=== PATIENT | male | born 1990 | race Caucasian/White ===

== ENCOUNTER 2016-12-22 19:43 | Emergency (ER) | payer MEDICAID | END 2016-12-23 00:10 | disposition home or self-care (01) | LOC: D.ER 19:43 | DX: S16.1XXA Strain of muscle, fascia and tendon at neck level, initial encounter (principal); V49.9XXA Car occupant (driver) (passenger) injured in unspecified traffic accident, initial encounter; Y93.89 Activity, other specified; Y92.89 Other specified places as the place of occurrence of the external cause; S29.012A Strain of muscle and tendon of back wall of thorax, initial encounter; S76.012A Strain of muscle, fascia and tendon of left hip, initial encounter; S76.011A Strain of muscle, fascia and tendon of right hip, initial encounter; M54.9 Dorsalgia, unspecified ==

== ENCOUNTER 2018-01-18 19:54 | Emergency (ER) | payer MEDICAID ==
[~2018-01-18] VITALS: Ht 185.4 cm; Wt 72.7 kg
[2018-01-18 20:08] VITALS: Ht 185.4 cm; Wt 72.7 kg
[2018-01-18] MEDS ORDERED: IBUPROFEN800 MG PO (21:01)
[2018-01-18 21:15] VITALS: BP 132/80
== END 2018-01-18 21:16 | disposition home or self-care (01) ==
LOC: D.ER 19:54
DX: S42.002A Fracture of unspecified part of left clavicle, initial encounter for closed fracture (principal); V86.56XA Driver of dirt bike or motor/cross bike injured in nontraffic accident, initial encounter; Y93.89 Activity, other specified; Y92.89 Other specified places as the place of occurrence of the external cause; F17.200 Nicotine dependence, unspecified, uncomplicated

== ENCOUNTER 2019-01-11 12:40 | Emergency (ER) | payer MEDICAID ==
[~2019-01-11] VITALS: Ht 185.4 cm; Wt 72.7 kg
[~2019-01-11 12:40] MED LIST: IBUPROFEN800 MG PO
[2019-01-11 12:43] VITALS: Ht 185.4 cm; Wt 72.7 kg
[2019-01-11] MEDS ORDERED: TORADOL10 MG PO (14:32)
[2019-01-11 14:52] VITALS: BP 164/88
== END 2019-01-11 14:55 | disposition home or self-care (01) ==
LOC: D.ER 12:40
DX: M54.5 Low back pain (principal); V86.99XA Unspecified occupant of other special all-terrain or other off-road motor vehicle injured in nontraffic accident, initial encounter; M79.671 Pain in right foot; F17.210 Nicotine dependence, cigarettes, uncomplicated

== ENCOUNTER 2019-10-09 14:18 | Emergency (ER) | payer MEDICAID ==
[~2019-10-09] VITALS: Ht 185.4 cm; Wt 72.7 kg
[~2019-10-09 14:18] MED LIST changes: +TORADOL10 MG PO
[2019-10-09 14:35] VITALS: BP 132/73; Ht 185.4 cm; Wt 72.7 kg
== END 2019-10-09 15:50 | disposition home or self-care (01) ==
LOC: D.ER 14:18
DX: S90.31XA Contusion of right foot, initial encounter (principal); W22.8XXA Striking against or struck by other objects, initial encounter

== ENCOUNTER 2020-08-03 13:30 | Emergency (ER) | payer MEDICAID ==
[~2020-08-03] VITALS: Ht 185.4 cm; Wt 70.5 kg
[~2020-08-03 13:30] MED LIST changes: +NAPROSYN500 MG PO
[2020-08-03 13:34] VITALS: BP 124/71; Ht 185.4 cm; Wt 70.5 kg
[2020-08-03] MEDS ORDERED: CYCLOBENZAPRINE10 MG PO (13:45)
[2020-08-03] MEDS ORDERED: ACETAMINOPHEN500 M1 PO (13:45)
[2020-08-03] MEDS ORDERED: IBUPROFEN800 MG PO (13:45)
== END 2020-08-03 14:48 | disposition home or self-care (01) ==
LOC: D.ER 13:30
DX: S06.0X9A Concussion with loss of consciousness of unspecified duration, initial encounter (principal); S20.229A Contusion of unspecified back wall of thorax, initial encounter; M79.10 Myalgia, unspecified site; S00.03XA Contusion of scalp, initial encounter; M54.6 Pain in thoracic spine; W22.8XXA Striking against or struck by other objects, initial encounter; Y93.9 Activity, unspecified; Y92.9 Unspecified place or not applicable